=== PATIENT | female | born 1975 | race Caucasian/White ===

== ENCOUNTER → 2023-12-21 | Outpatient (CLI) | payer OTHER ==
[2023-12-21 14:31] VITALS: BP 126/72; PULSE 82; RESP 16; TEMP 97.1
--- NOTE | 2023-12-21 14:49 | P.PAINPG ---
PQRS Measure Charge Sheet Comment: HISTORY OF PRESENT ILLNESS: [facility] 48 [facility] w severe and chronic LBP > 3 mo secondary to radiculopathy, spondylosis and facet arthropathy without myelopathy for evaluation. Pt states pain level is provoked at 10 /10 in intensity, constant, localized in the L lumbar spine, predominantly axial, dull in character w occasional shooting pain towards the buttocks and LEs. Pain is provoked by laying supine. Pain is alleviated by chiropractic treatments semi monthly x 2 mo which ended in Nov 2023 (provided no relief), physician guided home exercises 4 times weekly since Nov 2023, heat, medications (Neurontin, Flexeril, Soma), repositioning and rest . PMH: OA, MDD/ Bipolar Disorder PSH: Cholecystectomy, Tubal Ligation SH: Daily tobacco use, Occ ETOH use, No illicit drug use FH: Non contributory All: See list Meds: See list REVIEW OF ORGAN SYSTEMS: CONSTITUTIONAL: No fevers or chills. No recent weight loss. NEUROLOGICAL: + numbness and tingling along the distal extremities. No seizure disorders or headaches. MUSCULOSKELETAL: + pain PSYCHIATRIC: Denies current depression or suicidal thoughts. Physical Examinations : Constitutional : Cooperative , not in acute distress . Neurologic : Cranial nerve II to XII intact. No focal neurological deficits. Psychiatric : alert & oriented x 3. Matching mood & appropriate affect. Judgment & insight intact. Musculoskeletal : Cervical Spine Motor strength in the deltoid and biceps: Normal right side. Normal Left side Motor strength biceps and the wrist extensors: Normal right side . Normal left side Motor strength in the triceps muscle: Normal right side. Normal left side Deep tendon reflexes: Normal at the biceps. Normal at Brachioradialis. Normal at triceps Vertebral body tenderness to deep palpation over Cervical facet loading test: positive bilaterally Spurling test: positive bilaterally Neck distraction test: positive bilaterally Alfreda sign: positive bilaterally Lumbar spine Motor strength lower extremities ,thigh and legs 5/5 Right side , 5/5 Left side Deep tendon reflexes : Normal Knee Jerk. Normal Ankle Jerk Vertebral body tenderness over L4 Zamudio Test positive L4-L5 Lumbar facet Loading Test: positive Right / positive Left Range of motion of the lumbar spine Flexion 30 degrees, extension 10 degrees Straight Leg Raise test: Left/ Right positive at degrees Le test: positive right / positive left. Severe tenderness over the Sacroiliac joint on the Right / Left sides Gaenslen test: positive bilaterally Seated flexion test: positive bilaterally. Sacral spine : Severe tenderness over the Sacroiliac joint: right side / left side Range of motion: Flexion of the lumbar spine <60 degrees Range of motion: Extension of the lumbar spine <20 degrees Gaenslen's Test positive Le test: positive right side / left side Thigh Thrust Test Sacral Thrust Test Imaging: MRI non contrast lumbar spine from 11/16/23 reviewed Assessment/ Plan : Lumbar radiculopathy Recommendation of CT non contrast lumbar spine M54.16. All questions answered. I have spent greater than 30 minutes on patient care today. Dr Winston was available by phone for the evaluation of this patient. The time was used to review the medical records including relevant urine studies and Prescription history (MAPs), review of the available imaging, evaluation and examination of the patient, coordination of care with the medical staff and if applicable referring physicians, as well as creation of the medical record - Pain Location Lower Back Non-Pharmacological Interventions: Chiropractic Treatment, Massage Pharmacological Interventions: Topical Medication PQRS Narrative: Smoking Status Current some day smoker Home Medications: Ambulatory Orders ALPRAZolam [Xanax] 0.25 mg PO DAILY 06/02/15 Azithromycin [Zithromax Z-pack] 250 mg PO DAILY 06/02/15 Azithromycin [Zithromax Z-pack] 500 mg PO ONCE 06/02/15 DULoxetine HCL [Cymbalta] 20 mg PO DAILY 06/02/15 Metaxalone [Skelaxin] 800 mg PO TID PRN #15 tab 06/02/15 Naproxen [Naprosyn] 500 mg PO Q12HR #30 tab 06/02/15 lamoTRIgine [LaMICtal] 200 mg PO BID 06/02/15 Controlled Substance Measures - Controlled Substance Measures Is patient prescribed a controlled substance at discharge?: No
== END ==
LOC: PNWHC3 13:17
PROVIDERS: ATTEND Specialist
DX: M54.16 Radiculopathy, lumbar region (principal); F17.200 Nicotine dependence, unspecified, uncomplicated; Z88.6 Allergy status to analgesic agent
CPT/HCPCS: 99211